=== PATIENT | female | born 1990 | race Caucasian/White ===

== ENCOUNTER 2018-06-28 09:05 | Inpatient (IN) | payer MEDICAID ==
[~2018-06-28] VITALS: Ht 165.1 cm; Wt 91.8 kg
[2018-06-28] VITALS (18 sets, daily range): BP systolic 95–130; BP diastolic 49–63; PULSE 73–93; TEMP 97.3–98
[~2018-06-28 09:05] MED LIST: AMOXICILLIN 50500 MG PO; CORTISPORIN OTI10 ML OT; MOTRIN 600600 MG/TAB PO; PERCOCET 325 MG1 TA2 PO; PRENATAL1 TA1 PO
[2018-06-28 10:26] LABS: BASO % 0.3 % (0.0-2.0); EOS # 0.1 (0.0-0.7); EOS % 1.2 % (0-4.0); GRAN # 6.7 (1.4-6.5); GRAN % 72.3 % (42.2-75.2); HEMATOCRIT 38.3 % (37.0-47.0); HEMOGLOBIN 12.7 g/dl (12.5-16.0); LYMPH # 1.6 (1.2-3.4); LYMPH % 17.2 % (20.0-51.0); MEAN CELL VOLUME 90 fl (80.0-100.0); MEAN CORPUSCULAR HEMOGLOBIN 30 pg (27.0-31.0); MEAN CORPUSCULAR HGB CONC 33 g/dl (33.0-37.0); MEAN PLATELET VOLUME 10.8 fl (7.4-10.4); MONO # 0.8 (0.1-0.6); MONO % 8.7 % (1.7-9.3); PLATELET COUNT 270 K/mm3 (130-400); RED BLOOD COUNT 4.27 M/mm3 (4.10-5.30); REDCELL DISTRIBUTION WIDTH-CV 12.7 % (11.5-14.5)
[2018-06-29 00:15] VITALS: BP 116/52; PULSE 73; TEMP 97.9
[2018-06-29 04:00] VITALS: BP 99/57; PULSE 70; TEMP 98.5
[2018-06-29 07:55] LABS: HEMOGLOBIN 10.8 g/dl (12.5-16.0)
[2018-06-29 07:56] LABS: HEMATOCRIT 32.9 % (37.0-47.0)
[2018-06-29 08:00] VITALS: BP 109/55; PULSE 65; TEMP 97
[2018-06-29 16:00] VITALS: BP 109/59; PULSE 72; TEMP 97.9
[2018-06-29 19:39] VITALS: BP 119/64; PULSE 69; TEMP 98.2
[2018-06-30] MEDS ORDERED: PERCOCET 325 MG1 TA2 PO (07:16)
[2018-06-30] MEDS ORDERED: MOTRIN 600600 MG/TAB PO (07:16)
[2018-06-30 08:31] VITALS: BP 108/63; PULSE 75; TEMP 97.9
== END 2018-06-30 14:50 | disposition home or self-care (01) | DRG 785 ==
LOC: OB 09:05 → LDR 20:21 → OB 06-30 14:50
PROVIDERS: Obstetrics & Gynecology
PROC: 10D00Z1 Extraction of Products of Conception, Low, Open Approach (ICD-10-PCS; principal; 2018-06-28)
PROC: 0UT70ZZ Resection of Bilateral Fallopian Tubes, Open Approach (ICD-10-PCS; 2018-06-28)
DX: O34.211 Maternal care for low transverse scar from previous cesarean delivery (principal); Z3A.39 39 weeks gestation of pregnancy; Z37.0 Single live birth; Z40.03 Encounter for prophylactic removal of fallopian tube(s); O99.214 Obesity complicating childbirth; O99.344 Other mental disorders complicating childbirth; F41.8 Other specified anxiety disorders; J45.909 Unspecified asthma, uncomplicated
CPT/HCPCS: J0690; J1885; J2370; J2405; J2590; J7120